=== PATIENT | male | born 1945 | race Caucasian/White ===

== ENCOUNTER → 2019-06-10 13:16 | Outpatient (ROUT) | payer OTHER, SELFPAY ==
[2019-06-11 08:44] LABS: COVID19 Sendout Not Detected
== END ==
PROVIDERS: PCP Family Medicine; Visit Provider Registered Nurse
DX: Z01.818 Encounter for other preprocedural examination (principal); R05 Cough; Z11.59 Encounter for screening for other viral diseases
CPT/HCPCS: 87635

== ENCOUNTER 2019-06-14 06:30 | Inpatient (IN) | payer OTHER, SELFPAY ==
[2019-06-10 07:50] VITALS: BMI 26.5
[2019-06-14] VITALS (15 sets, daily range): BP systolic 113–148; BP diastolic 57–92; PULSE 49–92; RESP 1–20; TEMP 36.1–37.3; O2SAT 94–99; BMI 26.5
--- NOTE | 2019-06-14 | DI.RAD.S_ITS ---
PROCEDURE: XR CERVICAL SPINE 2V OR 3V INDICATIONS: ACDF C3-4, C4-5 TECHNIQUE: Fluoroscopic images were obtained during an operative procedure and submitted for interpretation following the completion of the procedure. COMPARISON: None. FINDINGS: These fluoroscopic images were performed for intraoperative localization. On these images, posterior fixation is seen anteriorly C3-C5. Please correlate with intraoperative findings. IMPRESSION: Normal intraoperative examination. Dictated by: Flako Henson M.D. on 06/14/2019 at 9:50 Approved by: Flako Henson M.D. on 06/14/2019 at 9:50
[2019-06-14] MEDS: LACTATED RINGERS 1,000 ML 42 ML IV ×2 (07:33→10:18)
--- NOTE | 2019-06-14 07:54 | P.HP_ITS ---
History of Present Illness History of Present Illness Date Patient Seen: 06/14/19 Time Patient Seen: 07:54 Date of Onset of Symptoms: 12/01/18 Chief complaint: [id number] Narrative: 74 yo M with chronic pain and more recent worsening of his radicular symptoms with pain radiating down both arms. He recently started to have bilateral feet symptoms with occasional balance issue. He is having difficulty performing activity of daily living. Patient History Medical History (Updated 06/10/19 @ 08:21 by Noemi Saravia RN) Arthritis (Acute) Kidney stones (Acute) Neck pain (Acute) Numbness and tingling (Acute) Pre-diabetes (Acute) Surgical History (Updated 06/10/19 @ 08:21 by Noemi Saravia RN) Hx of bilateral cataract extraction (Acute) Hx of hernia repair (Acute) Hx of lithotripsy (Acute) Family & Social History Social History: household members spouse Prior Living Arrangements House Safety & Behavioral: Feels Safe in Current Yes Environment Been Physically Hurt or No Threatened By a Person Suicidal Ideation Description None Suicide Plan Description No Plan Tobacco & Substance use: Smoking Status Never smoker alcohol intake never Substance Use Type does not use Meds Home Medications and Allergies Home Medications Medication Instructions Recorded Confirmed Type mupirocin 2 % topical ointment TOP DAILY 06/10/19 06/10/19 History Allergies Allergy/AdvReac Type Severity Reaction Status Date / Time Sulfa (Sulfonamide Allergy Severe Respiratory Verified 06/14/19 06:55 Antibiotics) complications as a baby atorvastatin Allergy Mild Rash, Verified 06/14/19 06:55 headache Exam Vital Signs (past 8 hours): - 06/14/19 07:10 Temperature 98 F Pulse Rate 49 L Respiratory Rate 20 Blood Pressure 132/78 Pulse Oximetry 99 Oxygen Delivery Method Room Air Neuro Other: Decreased motor strength in left deltoid, left trapezius at 4/5. Sensibility decreased to bilateral C5 dermatome. +Ley's to LUE -Clonus bilateral LE. Assessment & Plan Assessment & Plan narrative: Mr. Jennings is here for scheduled cervical fusion and decompression. His symptoms worsened and is having more difficulty performing activity of daily living. He has MRI imaging showing nerve roots and spinal cord compression from spinal stenosis and spondylosis with correlating radicular and myelopathic symptoms. I discussed risks and benefits of surgery again. He understands and would like to proceed. Informed consent was obtained and placed in the chart. Risks and benefits of doing the surgery versus postponing surgery due to current COVID-19 pandemic was discussed. He is also concerned about the uncertainty of his future surgery date since I cannot give him a precise date if we were to re- schedule. Due to patient's progressive neurologic deficit, patient would like to proceed in order to prevent potential permanent neurologic damage. I agree. He will proceed with his surgery on an urgent basis.
[2019-06-14] MEDS: CEFAZOLIN 2 GM/100 ML FROZ.PIGGY IV ×3 (08:05→23:26)
--- NOTE | 2019-06-14 08:51 | SUR.OPER ---
Supine, head on gel donut. Arms padded with gel pads, tucked at sides, towel roll under shoulders. Safety belt at thigh. Legs uncrossed.
--- NOTE | 2019-06-14 10:47 | P.OP_ITS ---
Operative Date/Time/Diagnoses Date of procedure: 06/14/19 Time of procedure: 07:47 Pre-op diagnosis: 1. C3-4, C4-5 spinal stenosis 2. 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 C3-4, C4-5 anterior cervical diskectomy and fusion 2. C3-4, C4-5 anterior interbody cage placement 3. C3-4, C4-5 anterior instrumentation with plate and screw placement in C5-C6 and C7 vertebrae 4. Utilization of microsurgical technique and operating microscope Same procedure as scheduled: Yes Indications: Patient has been having chronic neck pain and worsening cervical radiculopathy and myelopathy. Risks for surgery as well for possible postponing surgery due to COVID-19 exposure was discussed, patient understands and would like to proceed as previous planned due to concern for permanent neurologic damage for prolonged delay for compression of his neuro structures. Patient failed multiple conservative management with worsening pain weakness and numbness in her upper extremity and new onset of lower extremity neurologic symptoms including worsening balance. Patient has been having difficulty performing activity of daily living. After discussing risks benefits of treatment options, patient elected proceed with surgery. Surgeon: Brittny Vu Cancer Registry Manager: Macrina Nunez Click Yes if Unassisted: No Anesthesia Type: General Operative Notes Closure Type: primary Specimen(s): none sent Prosthetic devices, grafts, tissues, transplants, or devices: Globus extend plate, PEEK cages Estimated Blood Loss (mL): 50 Blood products transfused: none Procedure in detail: Patient was seen in the preoperative area. Risks and benefits of the surgery was discussed with the patient. Operative consent was obtained and placed in the chart. Patient was then taken to the operative room. Prophylactic antibiotic was given less than 0.5 hr prior to skin incision. General anesthesia was administered. Patient was placed into a supine position on her radiolucent table. Bilateral shoulders were taped down to allow proper C- arm imaging. Anterior cervical area was prepped and draped in a sterile fashion. Time-out was performed at this time. Using lateral C-arm imaging, the level between C3 and C5 was identified and marked on patient's neck. A oblique incision from midline towards medial border of sternocleidomastoid muscle was made. The platysma muscle was incised in line with skin incision. Metzenbaum scissor was used to develop the plane between the medial border of sternocleidomastoid d and the strap muscles medially. The carotid sheath and its contents were identified and protected behind the hand- held retractor during the entire case. The plane between the carotid sheath and strap muscles was developed with Metzenbaum scissors. Dissection was made down to the level of the anterior cervical fascia. Longus colli muscle was incised on the anterior aspect of vertebral bodies bilaterally from C3-5. Spinal needle was placed into the C3-4 disc space and confirmed with lateral C-arm imaging. Using microsurgical technique and operative microscope, anterior cervical diskectomy was performed at C3-4 and C4-5 level. This was done by removing the disc material, removing the anterior and posterior osteophytes posterior longitudinal ligaments along with performing bilateral foraminotomies at both levels. Patient was found to have severe central and foraminal stenosis at both levels, more severe on the left side for foramen stenosis. Patient's stenosis was fully decompressed after decompression was completed. Patient's spinal cord was fully decompressed after decompression in the central portion of the canal and confirmed with direct visual inspection with microscope. After the diskectomy was completed, 2 anterior interbody cages were obtained. The cages were packed with DMB bone grafting material. One cage each along with the bone grafting material was then packed into the interbody spaces from C3-5 with one cage into each interbody level. After the cages were placed, the anterior cervical plate was stabilized to the C3-5 vertebrae using 2 screws at each each level. Total 6 screws were placed. After confirming placement of the hardware with AP and lateral C-arm imaging, the screws were locked into the plate using the locking mechanism and torque limiting screwdriver. After the hardware was placed and confirmed with AP and lateral C-arm imaging, the wound was irrigated with sterile normal saline. The platysma muscle and the subcutaneous tissue was closed with 2-0 Vicryl. The skin was closed with 4- 0Monocryl and Steri-Strips. Patient tolerated the procedure well. Patient was transferred recovery room in stable condition. There were no complications. Complications: none Post-operative Condition: stable Disposition: observation Plan for aftercare: Admit for observation
[2019-06-14] MEDS: BUPIVACAINE 0.25% W/ EPI 30 ML VIAL INJ (10:54)
--- NOTE | 2019-06-14 11:40 | PC.NURSE ---
Addendum entered by Sarita Verdugo R.N. 06/14/19 13:09: Ambulating independently in hallway with OT/PT. Original Note: 1140: Received patient s/p ACDF by Dr. GAGNON. Patient awake, alert, and pleasant. Received on RA, O2 sat 97%. VSS and afebrile. SCDs in place upon arrival. Discussed importance of cervical sx precautions, soft collar in place. Dressing 4 x 4 gauze, secured with tegaderm, CDI. Oriented to room, environment, and plan of care. Call light within reach.
[2019-06-14] MEDS: SODIUM CHLORIDE 0.9% 1,000 ML 100 ML IV ×2 (12:04→22:11)
--- NOTE | 2019-06-14 13:23 | OT.IP.EVAL ---
Current Diagnoses Other spondylosis with radiculopathy, cervical region (06/14/19) Spinal stenosis, cervical region (06/14/19) Surgery Performed Operation Date: 06/14/19 07:45 Actual Procedures p C3-4,C4-5, ACDF w/ anterior instrumentation - Brittny Vu MD Past Medical History (Last Updated 06/10/19 @ 08:21 by Noemi Saravia, RN) Arthritis (Acute) Kidney stones (Acute) Neck pain (Acute) Numbness and tingling (Acute) Pre-diabetes (Acute) Surgical History (Last Updated 06/10/19 @ 08:21 by Noemi Saravia RN) Hx of bilateral cataract extraction (Acute) Hx of hernia repair (Acute) Hx of lithotripsy (Acute) Occupational Therapy Inpatient Evaluation/Re-Eval M1 PT/OT-IP Prior Functional Status Start: 06/14/19 13:30 Freq: NEEDED Status: Active Protocol: Document 06/14/19 13:30 [facility] (Rec: 06/14/19 13:54 [facility] [id number]) Medical Review Prior Functional Status Medical History Reviewed Yes Communication Independent. Mobility and Gait Did not use any devices for mobility needs. Activities of Daily Living and IADL's COmpletely independent, just recent having more pain in the neck while donning his shirt. 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 Social History Household Members spouse Living Arrangements House Number of Floors (Floors) Two Floors Number of Stairs To Enter/Railing? No steps to get in from the garage, and 7 steps with left rail, landing and another 7 steps and left rail to go up to the kitchen, bed room and living areas. Home Environment Standard Height Toilet,Tub/ Shower Home Equipment Hand Held Shower Employment Status Retired M2 OT-IP Current Condition Start: 06/14/19 13:30 Freq: Status: Active Protocol: Document 06/14/19 13:30 [facility] (Rec: 06/14/19 13:54 [facility] [id number]) Occupational Therapy Current Condition Current Condition Evaluation Date 06/14/19 Treatment Diagnosis C3-4, C4-5 ACDF Post Operative Precautions Cervical Spine Precautions Soft Collar for Comfort,No Heavy Lifting,Log Roll Weight Bearing Status Weight Bearing Status Weight Bear as Tolerated M3 OT- IP Subjective and Pain Start: 06/14/19 13:30 Freq: Status: Active Protocol: Document 06/14/19 13:30 [facility] (Rec: 06/14/19 13:54 [facility] [id number]) OT- Subjective Occupational Therapy Visit Type Type Initial Evaluation Visit Start Time 12:43 Visit Stop Time 13:23 Total Visit Minutes 40 Occupational Therapy Visit Comments Patient Comments Pt in bed but agreeable to do OT/PT eval. Patient/Caregiver Goals To go home. OT Pain Assessment Pain When Pain Assessed At Rest Pain Present Pain Present Denied Pain M4 OT- IP ADL's Start: 06/14/19 13:30 Freq: Status: Active Protocol: Document 06/14/19 13:30 [facility] (Rec: 06/14/19 13:54 [facility] [id number]) OT [id number] General Evaluation Self-Feeding Ability Standby Assistance Comments OT Self-Feeding Comments Gave and went over information sheet for swallowing needs, chew food thoroughly, eat softer foods, and sit upright. No problems noted with tuna fish and drinking the water. SENIOR COMMISSARY AGENT notified that pt had sx today for possible screen tomorrow. OT ADL-Grooming General Evaluation Grooming Ability Standby Assistance Comments OT Grooming Comments Pt able to wash his hands. Pt after education able to teodoro/ doff the soft collar with good safety. OT ADL-Oral Care Comments Oral Care Comments Pt educated to bend at the hips or sip into a cup for oral hygiene needs. OT ADL-Dressing General Eval Lower Body Dressing Ability Standby Assistance Comments OT Dressing Comments Pt able to comfortably cross his legs over to teodoro/doff his socks. OT ADL-Toileting General Evaluation Toileting Ability Standby Assistance Comments OT Toileting Comments SBA while pt able to stand to urinate into the urninal. OT ADL-Bathing Comments OT Bathing Comments Pt states normally stands and states will not need a shower chair, in addition, pt's will be able to assist at home for needs. Educated to try to shower below the collar and that if the collar got wet that it could be placed in the dryer to dry. M5 OT- IP IADL's Start: 06/14/19 13:30 Freq: Status: Active Protocol: Document 06/14/19 13:30 [facility] (Rec: 06/14/19 13:54 [facility] [id number]) OT-Instrumental Activities of Daily Living Home Safety Awareness Ability to Problem Solve Emergency Able to Problem Solve Situations Medication Management Medication Management No Deficits Identified Money Management Money Management No Deficits Identified Meal Preparation Meal Preparation Caregiver Provides Assist Healthcare Prof Healthcare Prof Caregiver Provides Assist Healthcare Prof Comments Educated pt to have son come to do heavy chores and have assist with needs. M6 OT- IP Functional Cognition Start: 06/14/19 13:30 Freq: Status: Active Protocol: Document 06/14/19 13:30 [facility] (Rec: 06/14/19 13:54 [facility] [id number]) Cognitive Factors Limiting Selfcare Function Cognitive Ability Level of Alertness Alert Patient Orientation Name,Age,Day of Week,Place, Situation Attention Span Ability Capable of Focused Attention, Capable of Sustained Attention Ability to Follow Commands Able to Follow One Step Commands Memory Description No Deficits Noted Cognitive Comments Cognitive Assessment Comments Pt slightly impulsive and needing reminders to slow down . Pt states while walking, I can go faster. Pt however does appear to like to joke around a lot. OT- Vision and Hearing OT- Hearing Assessment OT- Hearing Assessment WFL OT- Vision Assessment Visual Acuity WFL M7 OT- IP Mobility and Balance Start: 06/14/19 13:30 Freq: Status: Active Protocol: Document 06/14/19 13:30 [facility] (Rec: 06/14/19 13:54 [facility] [id number]) OT- Bed Mobility Assessment Rolling Level of Assistance Standby Assistance Supine to Sit Supine to Sit Assist Standby Assistance Scooting Scooting to Edge of Bed Independent OT-Transfer Assessment Sit to and From Stand Sit to and from Stand Standby Assistance Transfers Transfer Ability Standby Assistance,Contact Guard Assistance Technique Transfer Destination Bed,Chair,Toilet Transfer Technique Stand Step Pivot Devices Transfer Assistive Devices Gait Belt Comments Mobility Comments Initially pt a little unsteady on his feet and needing occasional CGA for gait and afterwards SBA with gait belt only. OT- Balance Assessment Sitting Balance and Reactions Static Sitting Balance Ability Normal Dynamic Sitting Balance Ability Normal Standing Balance and Reactions Static Standing Balance Ability Good M8 OT- IP Objective Assessments Start: 06/14/19 13:30 Freq: Status: Active Protocol: Document 06/14/19 13:30 [facility] (Rec: 06/14/19 13:54 [facility] [id number]) OT Gross Range of Motion Upper Extremity Range of Motion Assessment Within Functional Limits OT Strength Upper Extremity Strength Assessment Within Functional Limits M9 OT- IP Assessment and Plan Start: 06/14/19 13:30 Freq: Status: Active Protocol: Document 06/14/19 13:30 [facility] (Rec: 06/14/19 13:54 [facility] [id number]) OT Summary Assessment and Plan Potential Rehabilitation Potential Good Analytic Complexity at Evaluation Low Summary OT Impairments Dressing,Bathing,Toilet Transfers,Shower Transfers, Activity Tolerance Progress Towards Goals Progressing Toward Goals Assessment Summary Pt low complexity and main barrier is slightly unsteady on his feet and not back to baseline yet of completely independent with all needs. When medically stable to go home with his . Goals Grooming Goal Independent Dressing Goal Independent Toileting Goal Independent Bathing Goal Standby Assistance Toilet Transfer Goal Independent Shower Transfer Goal Independent Patient/Caregiver Education Goal Demonstrate Post-Op Precautions Days to Meet Goals 2 Frequency of Treatment Frequency Of Treatment Once a Day Treatment Plan OT Treatment Plan ADL Training,Functional Mobility,Patient/Family Education,Discharge Planning Other Treatment Recommendations and Next shower Treatment Focus Discharge Recommendations OT Discharge Recommendations Home with Assistance Home Equipment Needs ? shower chair Transportation Needs at Discharge Private Vehicle
--- NOTE | 2019-06-14 14:11 | PT.IIE ---
Current Diagnoses Other spondylosis with radiculopathy, cervical region (06/14/19) Spinal stenosis, cervical region (06/14/19) Surgery Performed Operation Date: 06/14/19 07:45 Actual Procedures p C3-4,C4-5, ACDF w/ anterior instrumentation - Brittny Vu MD Surgical History (Last Updated 06/10/19 @ 08:21 by Noemi Saravia RN) Hx of bilateral cataract extraction (Acute) Hx of hernia repair (Acute) Hx of lithotripsy (Acute) Medical History (Last Updated 06/10/19 @ 08:21 by Noemi Saravia RN) Arthritis (Acute) Kidney stones (Acute) Neck pain (Acute) Numbness and tingling (Acute) Pre-diabetes (Acute) Physical Therapy Inpatient Evaluation/Re-Eval M1 PT/OT-IP Prior Functional Status Start: 06/14/19 13:26 Freq: NEEDED Status: Active Protocol: Document 06/14/19 13:26 [facility] (Rec: 06/14/19 14:11 [facility] [id number]) Medical Review Prior Functional Status Medical History Reviewed Yes Communication communication with OT to co treat this patient. Communication with the patient regarding log roll and understanding of post surgical orders Mobility and Gait the patient reports he did not use any assistive devices prior to surgery. 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 Prior Functional Level (Other details) the patient was experiencing worsening of symptoms and difficulty performing all his usual ADL's. He had noted numbness in bilateral feet prior to surgery and pain radiating down both arms that limited his ADL's Social History Household Members spouse Living Arrangements House Number of Floors (Floors) Two Floors Number of Stairs To Enter/Railing? There are 7 steps to first landing and then 7 steps up onto the next floor where the patient spends most of his time Home Environment Standard Height Toilet Employment Status Retired M1 PT/OT-IP Prior Functional Status Start: 06/14/19 13:30 Freq: NEEDED Status: Active Protocol: Document 06/14/19 13:30 [facility] (Rec: 06/14/19 13:54 [facility] [id number]) Medical Review Prior Functional Status Medical History Reviewed Yes Communication Independent. Mobility and Gait Did not use any devices for mobility needs. Activities of Daily Living and IADL's COmpletely independent, just recent having more pain in the neck while donning his shirt. 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 Social History Household Members spouse Living Arrangements House Number of Floors (Floors) Two Floors Number of Stairs To Enter/Railing? No steps to get in from the garage, and 7 steps with left rail, landing and another 7 steps and left rail to go up to the kitchen, bed room and living areas. Home Environment Standard Height Toilet,Tub/ Shower Home Equipment Hand Held Shower Employment Status Retired M2 PT-IP Current Condition Start: 06/14/19 13:26 Freq: NEEDED Status: Active Protocol: Document 06/14/19 13:26 [facility] (Rec: 06/14/19 14:11 [facility] [id number]) Physical Therapy Current Condition Current Condition Evaluation Date 06/14/19 Treatment Diagnosis C3-4 C 4-5 anterior disectomy and fusion, ACDF Precautions Brace cervcal collar Weight Bearing Status Weight Bearing Status Full Weight Bearing M3 PT-IP Subjective Start: 06/14/19 13:26 Freq: NEEDED Status: Active Protocol: Document 06/14/19 13:26 [facility] (Rec: 06/14/19 14:11 [facility] [id number]) Subjective Physical Therapy Visit Type Type Initial Evaluation Visit Start Time 12:45 Visit Stop Time 13:30 Total Visit Minutes 45 Notes The patient was co-treated with OT Physical Therapy Visit Comments Patient Comments The patient is supine in bed upon PT arrival. He agrees to PT this afternoon. Reports very low pain levels Patient Goals The patient would like to return home to [place] with his . Therapy Pain Assessment Pain When Pain Assessed At Rest Pain Present Pain Present Denied Pain M4 PT-IP Mobility and Gait Start: 06/14/19 13:26 Freq: NEEDED Status: Active Protocol: Document 06/14/19 13:26 [facility] (Rec: 06/14/19 14:11 [facility] [id number]) PT-Bed Mobility Assessment Rolling Type of Rolling Log Rolling,Roll to Left Level of Assist Standby Assistance Supine to Sit Supine to Sit Standby Assistance Sit to Supine Sit to Supine Standby Assistance Scooting Scooting to Edge of Bed Standby Assistance PT-Transfer Assessment Sit to and From Stand Sit to and from Stand Contact Guard Assistance Equipment Transfer Assistive Device Gait Belt Transfers Transfer Destination Chair,Toilet Transfer Technique Stand Step Pivot Transfer Ability Level of Assist Standby Assistance Comments Mobility Comments The patient demonstrated good awareness with log rolling to his left side. He was able to perform left sidelying to sitting with standby assist. He demonstrated good sitting balance and reported feeling a little dizzy at first with sitting but this passed quickly. He transfered from sitting to standing with CGA and a gait belt. Pt felt good in standing so we had him ambulate to the sink for OT to do self care skills. He was able to take off his collar and was shown from OT how to lean forward from his waist. Treament then included ambulation over 400 ft which included a trial of stairs. He was able to maintain CGA with gait and with stairs using the left railing as he has at home. Pt ambulated back to his room and used the bathroom. He then ambulated to the bedside chair where his lunch was set out for him. His call light was placed within reach and he was monitored by OT while he was eating. Gait Assessment Gait Gait Assistance Required: Standby Assistance Distance (Feet) 400 Able to Maintain Weight Bearing Status Yes During Gait Assistive Devices Assistive Device Gait Belt Orthotic/Prosthetic Devices or Brace: No Gait Deviations General Gait Pattern Wide Based Gait Comments Gait Comments The patient still reported some c/o numbness in the left toes, he ambulated with a wide base of support but was overall sturdy and walked with CGA and gait belt. He ambulated to the staircase and did a flight of stairs with CGA and no loss of balance. He used the left hand rail only. The patient was also able to ambulate back to his room completing over 400 feet with gait without any fatigue Stair Climbing Assessment Evaluation Level of Assist On Stairs Contact Guard Assistance Devices Stair Climbing Assistive Devices None Technique/Endurance Stair Climbing Direction Ascend and Descend Stair Climbing Technique Step Over Step Number of Steps Climbed 6 Query Text: Stair Climbing Set # Repetitions (reps) 2 Comments Stair Climbing Comments pt demonstrated good tolerance for stair climbing PT-Balance Assessment Sitting Balance and Reactions Static Sitting Balance Ability Good Dynamic Sitting Balance Ability Good Standing Balance and Reactions Static Standing Balance Ability Good Dynamic Standing Balance Ability Good M5 PT-IP Objective Assessments Start: 06/14/19 13:26 Freq: NEEDED Status: Active Protocol: Document 06/14/19 13:26 [facility] (Rec: 06/14/19 14:11 [facility] [id number]) Orientation Orientation/Cognition Level of Alertness Alert Orientation Name,Age,Place,Situation Language Function Ability No Deficits Noted Safety Awareness Understands Safety Issues Memory Description No Deficits Noted Gross Range of Motion Upper Extremity ROM Assessment Within Functional Limits Lower Extremity ROM Assessment Within Functional Limits Strength Upper Extremity Strength Assessment Within Functional Limits Lower Extremity Strength Assessment Within Functional Limits Coordination Assessment Gross Coordination Gross Coordination WNL Sensation Assessment Sensation Sensation Description Numbness Comments Sensation Comments pt reports both hands and feet still a little bit tingling and he reports feeling a little numb still in his toes Muscle Tone Muscle Tone WNL Yes M6 PT-IP Treatment Start: 06/14/19 13: Freq: NEEDED Status: Active Protocol: Document 06/14/19 13:26 [facility] (Rec: 06/14/19 14:11 [facility] [id number]) Physical Therapy Treatment Education Education Provided Precautions,Post-Op Packet Brace Education [place],Patient M7 PT-IP Assessment and Plan Start: 06/14/19:26 Freq: NEEDED Status: Active Protocol: Document 06/14/19 13:26 [facility] (Rec: 06/14/19 14:11 [facility] [id number]) PT Summary Assessment and Plan Potential Rehabilitation Potential Excellent Status of Condition at Evaluation Stable Summary Impairments ROM,Sensation,Activity Tolerance Assessment Summary Mr Jennings is a 74 year old male s/p Cervcial C3-4 , C 4-5 anterior cervical disectomy and fusion. He lives with his in [place] and plans on returning home with his after discharge tomorrow. He was co treated with OT this afternoon. He was given a post op packet today and instructed in log rolling to support his neck. He denied pain but noted just a small amount of discomfort. He was willing to participate in therapies. His transfers in bed were with SBA only and all gait was CGA with gait belt only and no other assistive device. He does have two flights of stairs to ambulate up and down so stairs were also done today as the patient was feeling good. He ambulated to the stairs and demonstrated CGA for stairs using the left hand rail only. He was able to ambulate back to his room and sat up in the bed side chair for lunch. OT monitored his eating and he reported being happy that he could eat without much difficulty. He demonstrated overall good mobility and will be discharged from PT at this time. Frequency of Treatment Frequency Of Treatment Discharge Recommendations To Nursing Amount of Assist Needed Standby Assistance Discharge Recommendations PT Discharge Recommendations Home Other Discharge Recommendations pt rohit DC home with his Transportation Needs at Discharge Private Vehicle
--- NOTE | 2019-06-14 14:26 | CM.DANOTE ---
Addendum entered by Pascale Nunez 06/15/19 10:37: 06-15-19 Update: Patient expected to discharge home within the next 24hrs. No anticipated d/c planning needs identified at this time. PT plan to do caregiver training with spouse today. PT evaluation ordered. CHRIS Original Note: Patient is a 74 year old male who was admitted on 06/14/19 for Spinal Surg. Pt has [facility] for insurance and his PCP is Dr. Zeynep Torres. EMR was reviewed. Per Surgeon, pt tolerated procedure well. Per PT/OT, pt tolerated ambulation and mobility well and recommending safe d/c home with spouse assist when stable. SW met bedside with pt and explained role and pt confirms that he lives at home in [place] with his and is quite independent at baseline. 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 Pt does not use DME to ambulate at baseline and has local family in the area that can assist if needed. Pt confirms that his is available for assist and transport home at discharge and feels that caregiver training with PT/OT would be helpful. Pt very pleasant and conversant and discussed his grandkids and adult children. Pt does not anticipate any needs at d/c. SW updated PT/OT on request for caregiver training with spouse tomorrow prior to d/c and provided spouse Rekha cell phone [phone] and OT will call spouse to set up caregiver training. Plan: SW to follow for likely plan of d/c home via spouse POV tomorrow if stable after caregiver training with PT/OT. SW to follow for any further needs. BALDEMAR Lynn Discharge Planning/Care Management Advanced directive, confirm from FAMILY Start: 06/14/19 12:07 Freq: Q24H Status: Active Protocol: Document 06/14/19 12:09 EM (Rec: 06/14/19 12:10 EM [id number]) Advance Directive, confirm on record Time 12:10 Person contacted Justen Copy received No CM Discharge Assessment Start: 06/14/19 14:25 Freq: Status: Active Protocol: Document 06/14/19 14:25 [facility] (Rec: 06/14/19 14:26 [facility] [id number]) Discharge Planning Assessment Assigned Child Watch Attendant BALDEMAR Valdes DPOA/Assigned Designee Name Spouse Advance Directives? Yes Advance Directives on File No History Provided By Patient,Medical Record Has Patient been admitted in last 30 No days? Prior Living Arrangements House Household Members spouse Type of transporation used prior to Drives own vehicle admit Independent with ADL's Yes Is patient alert and oriented? Yes Caregiver for Another No Patient/Family Preference OP PT Therapy Barriers to Discharge No Discharge Plan Home Community Services Physical Therapy Transportation Arrangement Spouse can likely provide transport at d/c to home Referrals Initiated None needed Whiteboard Updated in Patient Room with Yes name and ext. # of Child Watch Attendant Review Status In Process Please Provide Date Initial DC 06/14/19 Assessment Was Performed Next Review Type Continued Stay Review Pre-Anesthesia Assessment Start: 06/10/19 07:50 Freq: Status: Active Protocol: Document 06/10/19 07:50 [facility] (Rec: 06/10/19 08:45 [facility] [id number]) Pre-Anesthesia Assessment PAC Comment COVID testing 06/10/19 - Negative, not detected. Result scanned to record and put in surgery folder for dos Preferred Name Bill Patient Information Reviewed Via Phone Assessment Assessment Completed With Patient Diagnostic Results BMP/CMP,CBC,EKG Comment Outside labs/EKG scanned to record Primary Care Provider Zeynep Torres Seen Specialist in Last 12 Months Yes Specialist Seen Orthopedist Primary Language Lithuanian Area Director Required No Height 177.8 cm Weight 83.915 kg Body Mass Index (BMI) 26.5 Hearing Ability Normal Visual Assist Magnifying Glass Dentition Type Teeth, Natural Present,Teeth, Missing Barriers to Learning None Other Aids No Hx Anesthesia Reactions No Hx Family Anesthesia Reaction No Hx Malignant Hyperthermia No Hx Blood Transfusions No Hx Blood Transfusion Reaction No Anesthesia Review Requested No alcohol intake never Smoking Status Never smoker Substance Use Type does not use Pain Present Pain Reported Musculoskeletal Symptoms Neck Pain,Numbness,Tingling History of Falling (Recent or History of No ) Patient is completely paralyzed or No completely immobile Mental Status Oriented to own ability Is patient on oxygen? No Does patient have LOPEZ/SOB No Hx Sleep Apnea No Currently Taking a Beta [place] No Can You Climb a Flight of Stairs Without Yes SOB Hx Chest Pain No Hx SOB No Hx Syncope or Dizziness No Anti-Coagulant Therapy No Has a Panel Beater No Cardiac Testing No Hx Pacemaker/ICD No Pacemaker Rep Required? No Cardiac Clearance Received Not Applicable Diet Type At Home Regular dysphagia No Gastrointestinal Symptoms Diarrhea Urinary Catheter Present No Hx Urinary Self Catheterization No Diabetes No: Hx of pre-diabetes Hx Drug Resistant Organism No Presence of External or Internal Medical Yes: Bilateral eye lens Devices Have you had any close contact with No someone diagnosed with COVID-19? Evaluation/Screening for possible COVID- Yes 19 infection completed? Marital Status Lives With spouse Prior Living Arrangements House Number of Floors (Floors) Two Floors Support System Spouse Does the Patient Have Assistance After Yes Surgery Patient Discharge Plan Description Return Home Feels Safe in Current Environment Yes Been Physically Hurt or Threatened By a No Person in Current Environment Do you have thoughts of harming yourself None or others? Are you currently considering suicide? No Do you have a plan to hurt yourself or No Plan others? Do You Have Any Spiritual Beliefs That No May Affect Your HC Choices? Do You Have Any Cultural Practices That No May Affect Your HC Choices? Spiritual Referral None Comment Moravian Who Can We Speak to About Patient's Care Family, friends Identifying Code for Release of Patient Declines to issue Information Health Care Proxy/Next of Kin Rekha () Health Care Proxy or cell: Emergency Contact Name Gurinder (son) Emergency Contact Advance Directives? Yes Advance Directives on File No Requested Patient Bring Advanced Yes Directives DOS Power of Technician Support Association Yes Power of Technician Support Association Name Rekha () Power of Technician Support Association or cell: PAC Instructions Durable medical equipment, Medications to take/avoid, Nasal antibiotic,No ETOH/ petroleum product on skin DOS, NPO,Post-op transportation,Pre -surgical wash,Sturdy shoes/ comfortable clothes,Do not bring valuables and remove jewelry
--- NOTE | 2019-06-14 14:57 | PT-IP ANOTE ---
Pt's requested property caretaker training prior to Mr. Jennings discharging home tomorrow. I set that up with her for 10:00 AM tomorrow morning 06/15/19
[2019-06-14] MEDS: OXYCODONE IR 5 MG TABLET PO (20:53)
[2019-06-14] MEDS: DOCUSATE 100 MG CAPSULE PO (20:53)
[2019-06-14] MEDS: ACETAMINOPHEN 325 MG TABLET 650 MG PO (20:54)
--- NOTE | 2019-06-14 20:57 | PC.NURSE ---
2100 - Pt has been up walking multiple times around the halls. Soft collar in place. Drsg to anterior neck CDI. Educated to activity/precautions. Pt verbalized understanding. Reporting pain 4 of 10. Educated to pain management. RX given. Pt denies difficulty swallowing however, tickle to back of throat persists. Able to swallow po meds with water. Declines snack. Reinforced safety and call light use. Call light in reach.
[2019-06-15 03:44] VITALS: BP 114/68; PULSE 64; RESP 18; TEMP 36.7; O2SAT 96
[2019-06-15] MEDS: ACETAMINOPHEN 325 MG TABLET 650 MG PO ×2 (05:52→11:58)
[2019-06-15] MEDS: OXYCODONE IR 5 MG TABLET PO ×2 (05:52→11:58)
[2019-06-15 08:04] VITALS: BP 108/76; PULSE 56; RESP 16; TEMP 36.4; O2SAT 100
--- NOTE | 2019-06-15 10:04 | OT.IP.TRT ---
Current Diagnoses Other spondylosis with radiculopathy, cervical region (06/14/19) Spinal stenosis, cervical region (06/14/19) Surgery Performed Operation Date: 06/14/19 07:45 Actual Procedures p C3-4,C4-5, ACDF w/ anterior instrumentation - Brittny Vu MD Occupational Therapy Treatment Note M2 OT-IP Current Condition Start: 06/14/19 13:30 Freq: Status: Active Protocol: Document 06/14/19 13:30 [facility] (Rec: 06/14/19 13:54 [facility] [id number]) Occupational Therapy Current Condition Current Condition Evaluation Date 06/14/19 Treatment Diagnosis C3-4, C4-5 ACDF Post Operative Precautions Cervical Spine Precautions Soft Collar for Comfort,No Heavy Lifting,Log Roll Weight Bearing Status Weight Bearing Status Weight Bear as Tolerated M3 OT- IP Subjective and Pain Start: 06/14/19 13:30 Freq: Status: Active Protocol: Document 06/15/19 10:56 [facility] (Rec: 06/15/19 11:09 [facility] [id number]) OT- Subjective Occupational Therapy Visit Type Type Treatment Note Visit Start Time 09:48 Visit Stop Time 10:04 Total Visit Minutes 16 Occupational Therapy Visit Comments Patient Comments Pt' in for family caregiver training. Patient/Caregiver Goals To go home. OT Pain Assessment Pain When Pain Assessed At Rest Pain Present Pain Present Pain Reported Location Neck Intensity 3 Scale Used Numeric (1 - 10) M4 OT- IP ADL's Start: 06/14/19 13:30 Freq: Status: Active Protocol: Document 06/15/19 10:56 [facility] (Rec: 06/15/19 11:09 [facility] [id number]) OT LMA-Yxgf-Fgbnsns Comments OT Self-Feeding Comments Pt states that his throat feels sore and that he also had steak last night but states that he chewed up the food thoroughly. Educated to his of initially eating softer food, small bites and sips, to eat at 90 upright and also when over swallowing information sheet. Called [facility] , [facility] states to come and see pt for swallow screen. OT ADL-Toileting Comments OT Toileting Comments Re-educated for pt to have increased awareness of head positioning while doing hygiene and dressing needs. OT ADL-Bathing Comments OT Bathing Comments Pt wanting to shower at home. Educated to be present for the shower and also to help determine if pt needing a shower chair. M5 OT- IP IADL's Start: 06/14/19 13:30 Freq: Status: Active Protocol: Document 06/14/19 13:30 [facility] (Rec: 06/14/19 13:54 [facility] [id number]) OT-Instrumental Activities of Daily Living Home Safety Awareness Ability to Problem Solve Emergency Able to Problem Solve Situations Medication Management Medication Management No Deficits Identified Money Management Money Management No Deficits Identified Meal Preparation Meal Preparation Caregiver Provides Assist [employer] Registrar [employer] Registrar Caregiver Provides Assist [employer] Registrar Comments Educated pt to have son come to do heavy chores and have assist with needs. M6 OT- IP Functional Cognition Start: 06/14/19 13:30 Freq: Status: Active Protocol: Document 06/15/19 10:56 [facility] (Rec: 06/15/19 11:09 [facility] [id number]) Cognitive Factors Limiting Selfcare Function Cognitive Ability Level of Alertness Alert Patient Orientation Name,Age,Day of Week,Place, Situation Attention Span Ability Capable of Focused Attention, Capable of Sustained Attention Ability to Follow Commands Able to Follow One Step Commands Memory Description Short Term Impaired Cognitive Comments Cognitive Assessment Comments Pt had to self correct himself as at home has right hand rails and not left side going up. Pt blaming his decreased memory on pain medications. Encouraged his to do the bills and medications and keep a watchful eye on the pt as pt tends to be a little impulsive. M7 OT- IP Mobility and Balance Start: 06/14/19 13:30 Freq: Status: Active Protocol: Document 06/15/19 10:56 [facility] (Rec: 06/15/19 11:09 [facility] [id number]) OT-Transfer Assessment Sit to and From Stand Sit to and from Stand Independent Transfers Transfer Ability Independent Technique Transfer Destination Bed,Chair Transfer Technique Stand Step Pivot Devices Transfer Assistive Devices Gait Belt Comments Mobility Comments Pt much steadier on his feet today. Pt and aware to walk with pt especially outside. OT- Balance Assessment Sitting Balance and Reactions Static Sitting Balance Ability Normal Dynamic Sitting Balance Ability Normal Standing Balance and Reactions Static Standing Balance Ability Normal M8 OT- IP Objective Assessments Start: 06/14/19 13:30 Freq: Status: Active Protocol: Document 06/14/19 13:30 [facility] (Rec: 06/14/19 13:54 [facility] [id number]) OT Gross Range of Motion Upper Extremity Range of Motion Assessment Within Functional Limits OT Strength Upper Extremity Strength Assessment Within Functional Limits M9 OT- IP Assessment and Plan Start: 06/14/19 13:30 Freq: Status: Active Protocol: Document 06/15/19 10:56 [facility] (Rec: 06/15/19 11:09 [facility] [id number]) OT Summary Assessment and Plan Potential Rehabilitation Potential Good Analytic Complexity at Evaluation Low Summary Progress Towards Goals Safe For Discharge Assessment Summary Pt's present for caregiver training and able to supervise pt for all OT needs with good safety and understanding. Pt looking to go home when cleared by the surgeon. Goals Days to Meet Goals 1 Frequency of Treatment Frequency Of Treatment Once a Day Discharge Recommendations OT Discharge Recommendations Home with Assistance
--- NOTE | 2019-06-15 10:59 | PT.IPTN ---
Current Diagnoses Other spondylosis with radiculopathy, cervical region (06/14/19) Spinal stenosis, cervical region (06/14/19) Surgery Performed Operation Date: 06/14/19 07:45 Actual Procedures p C3-4,C4-5, ACDF w/ anterior instrumentation - Brittny Vu MD Physical Therapy Treatment Note M2 PT-IP Current Condition Start: 06/14/19 13:26 Freq: NEEDED Status: Active Protocol: Document 06/14/19 13:26 [facility] (Rec: 06/14/19 14:11 [facility] [id number]) Physical Therapy Current Condition Current Condition Evaluation Date 06/14/19 Treatment Diagnosis C3-4 C 4-5 anterior disectomy and fusion, ACDF Precautions Brace cervcal collar Weight Bearing Status Weight Bearing Status Full Weight Bearing M3 PT-IP Subjective Start: 06/14/19 13:26 Freq: NEEDED Status: Active Protocol: Document 06/14/19 13:26 [facility] (Rec: 06/14/19 14:11 [facility] [id number]) Subjective Physical Therapy Visit Type Type Initial Evaluation Visit Start Time 12:45 Visit Stop Time 13:30 Total Visit Minutes 45 Notes The patient was co-treated with OT Physical Therapy Visit Comments Patient Comments The patient is supine in bed upon PT arrival. He agrees to PT this afternoon. Reports very low pain levels Patient Goals The patient would like to return home to concrete with his . Therapy Pain Assessment Pain When Pain Assessed At Rest Pain Present Pain Present Denied Pain M4 PT-IP Mobility and Gait Start: 06/14/19 13:26 Freq: NEEDED Status: Active Protocol: Document 06/14/19 13:26 [facility] (Rec: 06/14/19 14:11 [facility] [id number]) PT-Bed Mobility Assessment Rolling Type of Rolling Log Rolling,Roll to Left Level of Assist Standby Assistance Supine to Sit Supine to Sit Standby Assistance Sit to Supine Sit to Supine Standby Assistance Scooting Scooting to Edge of Bed Standby Assistance PT-Transfer Assessment Sit to and From Stand Sit to and from Stand Contact Guard Assistance Equipment Transfer Assistive Device Gait Belt Transfers Transfer Destination Chair,Toilet Transfer Technique Stand Step Pivot Transfer Ability Level of Assist Standby Assistance Comments Mobility Comments The patient demonstrated good awareness with log rolling to his left side. He was able to perform left sidelying to sitting with standby assist. He demonstrated good sitting balance and reported feeling a little dizzy at first with sitting but this passed quickly. He transfered from sitting to standing with CGA and a gait belt. Pt felt good in standing so we had him ambulate to the sink for OT to do self care skills. He was able to take off his collar and was shown from OT how to lean forward from his waist. Treament then included ambulation over 400 ft which included a trial of stairs. He was able to maintain CGA with gait and with stairs using the left railing as he has at home. Pt ambulated back to his room and used the bathroom. He then ambulated to the bedside chair where his lunch was set out for him. His call light was placed within reach and he was monitored by OT while he was eating. Gait Assessment Gait Gait Assistance Required: Standby Assistance Distance (Feet) 400 Able to Maintain Weight Bearing Status Yes During Gait Assistive Devices Assistive Device Gait Belt Orthotic/Prosthetic Devices or Brace: No Gait Deviations General Gait Pattern Wide Based Gait Comments Gait Comments The patient still reported some c/o numbness in the left toes, he ambulated with a wide base of support but was overall sturdy and walked with CGA and gait belt. He ambulated to the staircase and did a flight of stairs with CGA and no loss of balance. He used the left hand rail only. The patient was also able to ambulate back to his room completing over 400 feet with gait without any fatigue Stair Climbing Assessment Evaluation Level of Assist On Stairs Contact Guard Assistance Devices Stair Climbing Assistive Devices None Technique/Endurance Stair Climbing Direction Ascend and Descend Stair Climbing Technique Step Over Step Number of Steps Climbed 6 Stair Climbing Set # Repetitions (reps) 2 Comments Stair Climbing Comments pt demonstrated good tolerance for stair climbing PT-Balance Assessment Sitting Balance and Reactions Static Sitting Balance Ability Good Dynamic Sitting Balance Ability Good Standing Balance and Reactions Static Standing Balance Ability Good Dynamic Standing Balance Ability Good M5 PT-IP Objective Assessments Start: 06/14/19 13:26 Freq: NEEDED Status: Active Protocol: Document 06/14/19 13:26 [facility] (Rec: 06/14/19 14:11 [facility] [id number]) Orientation Orientation/Cognition Level of Alertness Alert Orientation Name,Age,Place,Situation Language Function Ability No Deficits Noted Safety Awareness Understands Safety Issues Memory Description No Deficits Noted Gross Range of Motion Upper Extremity ROM Assessment Within Functional Limits Lower Extremity ROM Assessment Within Functional Limits Strength Upper Extremity Strength Assessment Within Functional Limits Lower Extremity Strength Assessment Within Functional Limits Coordination Assessment Gross Coordination Gross Coordination WNL Sensation Assessment Sensation Sensation Description Numbness Comments Sensation Comments pt reports both hands and feet still a little bit tingling and he reports feeling a little numb still in his toes Muscle Tone Muscle Tone WNL Yes M6 PT-IP Treatment Start: 06/14/19 13:26 Freq: NEEDED Status: Active Protocol: Document 06/15/19 10:49 [facility] (Rec: 06/15/19 10:59 [facility] [id number]) Physical Therapy Treatment Education Education Provided Precautions,Safety Other Treatments Other Treatment Performed Care given training performed. Pt was sitting up in the bedside chair. He transfered to the bed with SBA to review log rolling. This was done with independence and no further vebal cues were needed . The patient then transfered to the sink to teodoro and doff cervical collar. Ambulation and stairs were reviewed with his and the patient ambulated with SBA to the stairs. He did 3 sets of stairs using the right hand rail as his clarified that he has a right hand rail at home. He then ambulated back to his room with SBA. Pt's was able to stay in room as speech was coming in next for consult. The patient will be discharged this am home with M7 PT-IP Assessment and Plan Start: 06/14/19 13:26 Freq: NEEDED Status: Active Protocol: Document 06/15/19 10:49 [facility] (Rec: 06/15/19 10:59 [facility] [id number]) PT Summary Assessment and Plan Potential Rehabilitation Potential Excellent Status of Condition at Evaluation Stable Summary Impairments ROM,Sensation,Activity Tolerance Assessment Summary 74 year old male s/p cervical anterior fusion with disectomy . He is being DC this AM home with his . Mr. Jennings's is here this am for caregiver training. This was performed this AM including log roll technique, donning and doffing the cervical collar, ambulation, transfers , and review of precautions. The patient and his have a good understanding of precautions and guidelines for home. The patients pain level this am is 3/10 Frequency of Treatment Frequency Of Treatment Discharge Recommendations To Nursing Amount of Assist Needed Standby Assistance Discharge Recommendations PT Discharge Recommendations Home Other Discharge Recommendations pt rohit DC home with his Transportation Needs at Discharge Private Vehicle
--- NOTE | 2019-06-15 11:06 | SLP.IPNOTE ---
Patient seen in room for swallow and voice screening post ACDF surgery. Patient presented with ice cream, water with straw, and cracker with peanut butter. Patient presented with no overt s/sx of aspiration across all consistencies trialed. Patient reported that he experienced no difficulty eating last night's dinner (steak). Patient presented with a clear vocal quality throughout voice screening. LIBRARY ASSOCIATE provided patient and patient's with a handout regarding voice and swallowing changes post ACDF surgery. LIBRARY ASSOCIATE reviewed tips to help manage dysphagia and/or dysphonia and answered all questions asked from patient and patient's . Ro Hoskins MS, CF-LIBRARY ASSOCIATE
[2019-06-15] MEDS: DOCUSATE 100 MG CAPSULE PO (11:58)
== END 2019-06-15 12:30 | disposition home or self-care (01) | DRG 472 ==
PROVIDERS: Admitting Provider Orthopaedic Surgery Orthopaedic Surgery of the Spine; PCP Family Medicine; Referring Provider Orthopaedic Surgery Orthopaedic Surgery of the Spine; Visit Provider Orthopaedic Surgery Orthopaedic Surgery of the Spine
PROC: 0RG20A0 Fusion of 2 or more Cervical Vertebral Joints with Interbody Fusion Device, Anterior Approach, Anterior Column, Open Approach (ICD-10-PCS; principal; 2019-06-14 07:45)
DX: M48.02 Spinal stenosis, cervical region (principal); M47.12 Other spondylosis with myelopathy, cervical region; M54.12 Radiculopathy, cervical region
CPT/HCPCS: 72040; 76000; 97161; 97165; 97530; 97535; C1776; J0330; J0461; J0690; J1100; J1170; J2405; J2704; J3010